=== PATIENT | male | born 1980 | race Caucasian/White ===

== ENCOUNTER 2024-08-04 10:15 | Emergency (ER) | payer BC ==
[2024-08-04] MEDS ORDERED: FAMOTIDINE 20 MG/50 ML IVPB 20 MG/50 ML MG IVPB ONE (10:52)
[2024-08-04] MEDS ORDERED: ACETAMINOPHEN INJECTION 100 ML ONE (10:52)
[2024-08-04 11:01] VITALS: BP 131/80; PULSE 82; RESP 100; TEMP 98.1; BMI 27.8
[2024-08-04] MEDS: ACETAMINOPHEN 1000 MG/100 ML BAG IVPB ONE (11:03)
[2024-08-04] MEDS: SODIUM CHLORIDE 1,000 ML IV STA (11:03)
[2024-08-04] MEDS: FAMOTIDINE 20 MG/50 ML IVPB 20 MG/50 ML MG IVPB ONE (11:03)
[2024-08-04 11:36] LABS: ALBUMIN 4.8 g/dl (3.4-5.0); BILIRUBIN,TOTAL 0.7 mg/dl (0.2-1); CALCIUM 9.8 mg/dl (8.5-10.1); TOT PROT 7.4 g/dl (6.4-8.2)
[2024-08-04 12:18] LABS: HEMATOCRIT 42.2 % (35.4-49); HEMOGLOBIN 14.3 G/dL (11.7-16.9); MCH 30.1 pg (25.7-33.7); MCHC 33.8 g/dl (32.0-35.9); PLATELET COUNT 221.3 10^3/uL (134-434); RBC 4.74 10^6/uL (4.00-5.60); RDW 13.4 % (11.9-15.9); WHITE BLOOD COUNT 5.4 10^3/uL (4.0-10.8)
[2024-08-04 12:20] LABS: PLATELET ESTIMATE ADEQUATE
[2024-08-04] MEDS ORDERED: MAG HYDROX/AL HYDROX/SIMETH 30 ML UNIT-DOSE CUP ONE (12:45)
[2024-08-04] MEDS: MAG HYDROX/AL HYDROX/SIMETH 30 ML UNIT-DOSE CUP PO ONE (12:48)
[2024-08-04 15:14] LABS: EPITHELIAL CELLS 0-5 /hpf
== END 2024-08-04 14:53 | disposition home or self-care (01) ==
LOC: FER 10:15
PROC: 3E033GC Introduction of Other Therapeutic Substance into Peripheral Vein, Percutaneous Approach (ICD-10-PCS; principal; 2024-08-04)
PROC: 3E033NZ Introduction of Analgesics, Hypnotics, Sedatives into Peripheral Vein, Percutaneous Approach (ICD-10-PCS; 2024-08-04)
PROC: 3E0337Z Introduction of Electrolytic and Water Balance Substance into Peripheral Vein, Percutaneous Approach (ICD-10-PCS; 2024-08-04)
DX: K85.90 Acute pancreatitis without necrosis or infection, unspecified (principal); R10.11 Right upper quadrant pain; R10.13 Epigastric pain
CPT/HCPCS: 36415; 74177-TC; 76705-TC; 80053; 81003; 81015; 83690; 84484; 85027; 87086; 93005; 99285-25; J0131; Q9967